=== PATIENT | female | born 1945 | race Caucasian/White ===

== ENCOUNTER 2017-12-31 21:16 | Emergency (ER) | payer OTHER ==
[~2017-12-31] VITALS: Ht 175.3 cm; Wt 124.0 kg
[2017-12-31 21:20] VITALS: TEMP 36.6; Ht 175.3 cm; Wt 124.0 kg
--- NOTE | 2017-12-31 22:10 | DIAGNOSTIC IMAGING REPORT ---
CHEST ONE VIEW PORTABLE CLINICAL HISTORY: 72 years-old Female presenting with CHEST PAIN. TECHNIQUE: Portable upright AP view of the chest was obtained. COMPARISON: None. FINDINGS: Atherosclerosis of aortic arch. Cardiac silhouette enlarged. Minimal basilar opacities. No pleural effusion or pneumothorax. Degenerative changes of the thoracic spine. Upper abdomen normal. IMPRESSION: 1. Minimal bibasilar atelectasis suspected. No convincing evidence of acute cardiopulmonary disease. Electronically signed by: Pantera Mcbride M.D. 12/31/2017 10:09 PM Dictated Date/Time: 12/31/2017 10:08 PM
[2017-12-31 22:16] LABS: INR 1.1 (0.9-1.1); PTT PATIENT 26.6 SECONDS (21.0-31.0)
[2017-12-31 22:19] LABS: BASO % 0.5 %; BASO ABS # 0.05 K/uL (0-0.2); EOS % 4.2 %; HEMATOCRIT 40.2 % (37-47); HEMOGLOBIN 13.8 g/dL (12.0-16.0); IG# 0.03 K/uL (0.00-0.02); LYMPH % 39.6 %; MEAN CELL VOLUME 90.5 fL (80-100); MEAN CORPUSCULAR HEMOGLOBIN 31.1 pg (25-34); MEAN CORPUSCULAR HGB CONC 34.3 g/dl (32-36); MEAN PLATELET VOLUME 9.1 fL (7.4-10.4); MONO % 7.2 %; MONO ABS # 0.69 K/uL (0.11-0.59); NEUT % 48.2 %; NEUT ABS # 4.63 K/uL (1.4-6.5); PLATELET COUNT 376 K/uL (130-400); RED CELL DISTRIBUTION WIDTH CV 14.3 % (11.5-14.5); RED CELL DISTRIBUTION WIDTH SD 47.6 fL (36.4-46.3)
[2017-12-31] MEDS ORDERED: CETI10TA84 PO (22:30)
[2017-12-31] MEDS ORDERED: POTA10CA28 PO (22:30)
[2017-12-31] MEDS ORDERED: TRIATAB3 PO (22:30)
[2017-12-31] MEDS ORDERED: MAGNESIUM (22:30)
[2017-12-31] MEDS ORDERED: KETO2SHA5 TOP (22:30)
[2017-12-31] MEDS ORDERED: ERGO500037 PO (22:30)
[2017-12-31] MEDS ORDERED: NIAC50TA9 PO (22:30)
[2017-12-31] MEDS ORDERED: ATEN-173 PO (22:30)
[2017-12-31] MEDS ORDERED: MECL1TAB42 PO (22:30)
[2017-12-31] MEDS ORDERED: WARF6TAB PO (22:30)
[2017-12-31] MEDS ORDERED: LEVO150T9 PO (22:30)
[2017-12-31 22:38] LABS: ALBUMIN 3.3 gm/dl (3.4-5.0); ALT/SGPT 41 U/L (12-78); BLOOD UREA NITROGEN 15 mg/dl (7-18); CARBON DIOXIDE 26 mmol/L (21-32); CREATININE 0.91 mg/dl (0.60-1.20); GLUCOSE 112 mg/dl (70-99); LIPASE 280 U/L (73-393); POTASSIUM 3.7 mmol/L (3.5-5.1); SODIUM 135 mmol/L (136-145)
[2017-12-31 22:53] LABS: ALKALINE PHOSPHATASE 98 U/L (45-117); AST/SGOT 34 U/L (15-37); TOTAL PROTEIN 7.4 gm/dl (6.4-8.2)
[2017-12-31 23:01] VITALS: O2SAT 92
--- NOTE | 2018-01-01 00:11 | EMERGENCY ROOM VISIT NOTE ---
ED Visit Note First contact with patient: 21:25 The patient was seen and examined with Basia Greenberg [facility]. I agree with the history, physical and findings. Please see the note for disposition and details.
[2018-01-01] MEDS ORDERED: WARFARIN SOD 6 MG TAB PO STA (00:40)
[2018-01-01 01:00] VITALS: BP 135/85; PULSE 67; O2SAT 94
--- NOTE | 2018-01-01 01:10 | EMERGENCY ROOM VISIT NOTE ---
History First contact with patient: 21:25 Chief Complaint: SHORTNESS OF BREATH Stated Complaint: TROUBLE BREATHING Nursing Triage Summary: pt states she was taken off of her thyroid medication for 6 weeks and has been back on it for 3 days. c/o sob, "feeling swollen all over," feeling cold. pt on coumadin History of Present Illness The patient is a 72 year old female who presents to the Emergency Room with complaints of worsening fatigue, dry skin, body aches, chronic dyspnea for the past 6 months that is steadily getting worse. Patient states 3 months ago her family doctor told her to quit taking her Synthroid. She then was told to restart it 3 days ago. Patient is on Coumadin for history of PE. She states she has not missed a dose. She states her INR levels go up and down constantly. Patient states she is fed up with her current family care doctor and will be seeing Dr. Shine as her new family care doctor. No prior history of heart disease or CHF. Patient does not drink or smoke. She used to smoke in the past. No recent travel. Patient has sleep apnea. Patient denies chest pain, exertional dyspnea, leg swelling, confusion, fever, productive cough , vomiting, diarrhea, cold symptoms, Urinary symptoms. Review of Systems An 10 system review of systems was completed with positives and pertinent negatives listed in the HPI. Past Medical/Surgical History Hypothyroidism, PE, cholecystectomy, hypertension, hyperlipidemia, diabetes, KARISHMA , vitamin D deficiency, hysterectomy, tonsillectomy Social History Smoking Status: Former Smoker Alcohol Use: none Drug Use: none Housing Status: lives with family Current/Historical Medications Scheduled Atenolol (Tenormin), 25 MG PO DAILY Cetirizine (Zyrtec), 10 MG PO DAILY Ergocalciferol (Vitamin D 88554 Unit), 50,000 UNIT PO WK Levothyroxine Sodium (Levothyroxine Sodium), 1 TAB PO DAILY Niacin (Niacin), 1 TAB PO DAILY Potassium Chloride (Micro-K Ext Rel), 1 TAB PO BID Triamterene/Hctz (Triamterene/Hctz 37.5-25MG), 1 TAB PO DAILY Warfarin Sodium (Coumadin), 1 TAB PO DAILY [Magnesium], 1 TAB DAILY Scheduled PRN Ketoconazole (Topical) (Nizoral), 1 APPLN TOP 2XWK PRN for Meclizine Hcl (Meclizine Hcl), 1 TAB PO DAILY PRN for Dizziness or Vertigo Physical Exam Vital Signs Date Time Temp Pulse Resp B/P (MAP) Pulse Ox O2 Delivery O2 Flow Rate FiO2 01/01/18 00:01 64 18 144/81 91 Room Air 12/31/17 23:01 92 Room Air 12/31/17 23:01 92 Room Air 12/31/17 23:01 66 18 128/76 92 Room Air 12/31/17 22:17 69 12/31/17 21:25 96 Room Air 12/31/17 21:20 36.6 78 20 133/74 96 Room Air Physical Exam VITALS: Vitals are noted on the nurse's note and reviewed by myself. Vital signs stable. GENERAL: Pleasant female answering questions appropriately, in no acute distress , nondiaphoretic, well-developed well-nourished. SKIN: The skin was without rashes, erythema, edema, or bruising. There is no tenting of the skin. Capillary reflex less than 2 seconds. HEAD: Normocephalic atraumatic. EARS: External auditory canals clear, tympanic membranes pearly hernandez without erythema or effusion bilaterally. EYES: Pupils equal round and reactive to light and accommodation. Conjunctivae without injection, sclerae without icterus. Extraocular movements intact. NOSE: Patent, turbinates without inflammation or discharge. No sinus tenderness. MOUTH: Mucous membranes moist. Pharynx without erythema or exudate. Uvula midline. Airway patent. Tongue does not deviate. NECK: Supple without nuchal rigidity. No lymphadenopathy. No thyromegaly. Cervical spine is nontender. No JVD. HEART: Regular rate and rhythm LUNGS: Clear to auscultation bilaterally without wheezes, rales or rhonchi. No retractions or accessory muscle use. ABDOMEN: Positive bowel sounds x 4. Normal tympanic percussion. Soft, protuberant, obese, nontender, without masses or organomegaly. Huynh sign negative. No guarding or rebound tenderness. No CVA tenderness MUSCULOSKELETAL: No muscle atrophy, erythema, or edema noted. NEURO: Patient was alert and oriented to person place and time. Normal sensation to light and sharp touch. No focal neurological deficits. Medical Decision & Procedures Laboratory Results 12/31/17 21:55 Red Blood Count 4.44, Mean Corpuscular Volume 90.5, Mean Corpuscular Hemoglobin 31.1, Mean Corpuscular Hemoglobin Concent 34.3, Mean Platelet Volume 9.1, Neutrophils (%) (Auto) 48.2, Lymphocytes (%) (Auto) 39.6, Monocytes (%) (Auto) 7.2, Eosinophils (%) (Auto) 4.2, Basophils (%) (Auto) 0.5, Neutrophils # (Auto) 4.63, Lymphocytes # (Auto) 3.80, Monocytes # (Auto) 0.69, Eosinophils # (Auto) 0.40, Basophils # (Auto) 0.05 12/31/17 21:55 Test 12/31/17 21:28 12/31/17 21:55 12/31/17 23:48 01/01/18 00:02 D-Dimer 210 ug/L FEU (0-500) White Blood Count 9.60 K/uL (4.8-10.8) Red Blood Count 4.44 M/uL (4.2-5.4) Hemoglobin 13.8 g/dL (12.0-16.0) Hematocrit 40.2 % (37-47) Mean Corpuscular Volume 90.5 fL (80-100) Mean Corpuscular Hemoglobin 31.1 pg (25-34) Mean Corpuscular Hemoglobin Concent 34.3 g/dl (32-36) Platelet Count 376 K/uL (130-400) Mean Platelet Volume 9.1 fL (7.4-10.4) Neutrophils (%) (Auto) 48.2 % Lymphocytes (%) (Auto) 39.6 % Monocytes (%) (Auto) 7.2 % Eosinophils (%) (Auto) 4.2 % Basophils (%) (Auto) 0.5 % Neutrophils # (Auto) 4.63 K/uL (1.4-6.5) Lymphocytes # (Auto) 3.80 K/uL (1.2-3.4) Monocytes # (Auto) 0.69 K/uL (0.11-0.59) Eosinophils # (Auto) 0.40 K/uL (0-0.5) Basophils # (Auto) 0.05 K/uL (0-0.2) RDW Standard Deviation 47.6 fL (36.4-46.3) RDW Coefficient of Variation 14.3 % (11.5-14.5) Immature Granulocyte % (Auto) 0.3 % Immature Granulocyte # (Auto) 0.03 K/uL (0.00-0.02) Prothrombin Time 11.3 SECONDS (9.0-12.0) Prothromb Time International Ratio 1.1 (0.9-1.1) Activated Partial Thromboplast Time 26.6 SECONDS (21.0-31.0) Partial Thromboplastin Ratio 1.0 Anion Gap 8.0 mmol/L (3-11) Est Creatinine Clear Calc Drug Dose 80.0 ml/min Estimated GFR () 73.6 Estimated GFR (Non- 63.5 BUN/Creatinine Ratio 16.1 (10-20) Calcium Level 9.0 mg/dl (8.5-10.1) Magnesium Level 2.2 mg/dl (1.8-2.4) Total Bilirubin 0.3 mg/dl (0.2-1) Direct Bilirubin mg/dl (0-0.2) Aspartate Amino Transf (AST/SGOT) 34 U/L (15-37) Alanine Aminotransferase (ALT/SGPT) 41 U/L (12-78) Alkaline Phosphatase 98 U/L (45-117) Pro-B-Type Natriuretic Peptide 23 pg/ml (0-900) Total Protein 7.4 gm/dl (6.4-8.2) Albumin 3.3 gm/dl (3.4-5.0) Lipase 280 U/L (73-393) Thyroid Stimulating Hormone (TSH) 164.000 uIu/ml (0.300-4.500) Free Thyroxine 0.39 ng/dl (0.80-1.60) Chemistry Specimen Hemolysis Urine Color YELLOW Urine Appearance CLEAR (CLEAR) Urine pH 6.5 (4.5-7.5) Urine Specific Alexis 1.017 (1.000-1.030) Urine Protein NEG (NEG) Urine Glucose (UA) NEG (NEG) Urine Ketones NEG (NEG) Urine Occult Blood NEG (NEG) Urine Nitrite NEG (NEG) Urine Bilirubin NEG (NEG) Urine Urobilinogen NEG (NEG) Urine Leukocyte Esterase MODERATE (NEG) Urine WBC (Auto) >30 /hpf (0-5) Urine RBC (Auto) 0-4 /hpf (0-4) Urine Hyaline Casts (Auto) 1-5 /lpf (0-5) Urine Epithelial Cells (Auto) 20-30 /lpf (0-5) Urine Bacteria (Auto) NEG (NEG) Troponin I < 0.015 ng/ml (0-0.045) Medications Administered Medications (Trade) Dose Ordered Sig/Estella Route Start Time Stop Time Status Last Admin Dose Admin Warfarin Sodium (Coumadin Tab) 6 mg NOW STAT PO 01/01/18 00:40 01/01/18 00:41 DC 01/01/18 00:57 6 MG ED Course Prior records/ancillary studies reviewed and summarized above. Nursing notes reviewed. Additional history obtained from family. The patient's history was concerning for fatigue, dyspnea for the past 6 months Differential diagnosis: Etiologies such as thyroid, metabolic, infection, hypo/hyperglycemia, electrolyte abnormalities, cardiac sources, intracerebral event, toxicologic, neurologic, as well as others were entertained. Physical examination: As above. ER treatment provided: IV Lock Coumadin On reassessment the patient felt better. Diagnostics interpretation by me: ECG: Normal sinus, normal intervals, left axis deviation, no acute ST-T wave changes, rate 72. No old EKG. Impression normal sinus rhythm with left axis deviation interpreted by myself The labs revealed elevated TSH. Patient recently restarted her thyroid medicine 3 days ago. Negative troponin 2 greater than 2 hours apart, negative d-dimer, subtherapeutic INR Imaging studies: [~ rep ct add3]] CHEST ONE VIEW PORTABLE CLINICAL HISTORY: 72 years-old Female presenting with CHEST PAIN. TECHNIQUE: Portable upright AP view of the chest was obtained. COMPARISON: None. FINDINGS: Atherosclerosis of aortic arch. Cardiac silhouette enlarged. Minimal basilar opacities. No pleural effusion or pneumothorax. Degenerative changes of the thoracic spine. Upper abdomen normal. IMPRESSION: 1. Minimal bibasilar atelectasis suspected. No convincing evidence of acute cardiopulmonary disease. Electronically signed by: Pantera Mcbride M.D. 12/31/2017 10:09 PM Dictated Date/Time: 12/31/2017 10:08 PM Exam and history seem consistent with severe hypothyroidism and subtherapeutic INR. D-dimer was negative. Patient started her Synthroid to days ago. She is advised to recheck her thyroid levels in 6 weeks. She was advised to see her family care doctor this week for recheck of her INR and for reevaluation. Patient had a normal EKG and 2 negative troponins. No urine infection. Urine seemed consistent with contamination. Patient was neurovascularly and neurologically intact. She is well-appearing. She is advised to return to the ER immediately for chest pain, difficulty breathing, confusion, worsening signs or symptoms or as needed. Patient's symptoms have been ongoing for several months now. By the evaluation outlined above emergent etiologies such as infection, electrolyte abnormalities, cardiac sources, intracerebral event, toxologic, neurologic, abnormalities blood glucose, metabolic, as well as others were deemed relatively unlikely. The pt informed about the findings as listed above. All questions were answered and pleased with the treatment. Return instructions were outlined and the patient was discharged in stable condition. Referral: The patient was referred back to primary care physician for follow-up in 2 to 3 days for a recheck of the current condition. Case reviewed with my attending The chart was completed utilizing [employer] voice recognition software. Grammatical errors, random word insertions, pronoun errors, and incomplete sentences are an occassional consequence of this system due to software limitations, ambient noise, and hardware issues. Any formal questions or concerns about the content, text, or information contained within the body of this dictation should be directly addressed to the physician early childhood assistant for clarification. Medical Decision As above Medication Reconcilliation Current Medication List: was personally reviewed by me Blood Pressure Screening Patient's blood pressure: Normal blood pressure Impression Primary Impression: Subtherapeutic international normalized ratio (INR) Additional Impression: Hypothyroidism Departure Information Dispostion Home / Self-Care Condition GOOD Forms HOME CARE DOCUMENTATION FORM, IMPORTANT VISIT INFORMATION Patient Instructions My [facility], ED Hypothyroidism Additional Instructions You need to have your thyroid levels rechecked in 6 weeks. You should take her medicine daily. Your Coumadin levels are low. You should take twice your Coumadin dose for 2 more days and then resume your normal schedule. Recheck your Coumadin level in 1 week. Acetaminophen(Tylenol) may be used for fever or pain. Use 1000mg every six hours as needed. Avoid using more than 3000mg in a 24 hour period. Rest and drink plenty of fluids as tolerated. Continue current medications. Return to the ER immediately for worsening or persistent fatigue, abdominal pain , vomiting, fevers, chest pains, difficulty breathing, worsening of your condition, or as needed. Follow up with your primary physician in 2-3 days for a recheck of your current condition. Problem Qualifiers
== END 2018-01-01 01:00 | disposition home or self-care (01) ==
LOC: C.EDB 21:18 → C.EDC 01-01 01:00
DX: R79.1 Abnormal coagulation profile (principal); E03.9 Hypothyroidism, unspecified; I10 Essential (primary) hypertension; E78.5 Hyperlipidemia, unspecified; Z79.01 Long term (current) use of anticoagulants; E55.9 Vitamin D deficiency, unspecified; E11.9 Type 2 diabetes mellitus without complications; G47.33 Obstructive sleep apnea (adult) (pediatric); Z90.49 Acquired absence of other specified parts of digestive tract; Z90.710 Acquired absence of both cervix and uterus; Z87.891 Personal history of nicotine dependence; Z86.711 Personal history of pulmonary embolism

== ENCOUNTER → 2018-01-10 | Outpatient (CLI) | payer OTHER ==
[~2018-01-10] MED LIST: ATEN-173 PO; CETI10TA84 PO; ERGO500037 PO; KETO2SHA5 TOP; LEVO150T9 PO; MAGNESIUM; MECL1TAB42 PO; NIAC50TA9 PO; POTA10CA28 PO; TRIATAB3 PO; WARF6TAB PO
[2018-01-10 17:40] LABS: INR 1.8 (0.9-1.1)
== END | disposition home or self-care (01) ==
LOC: C.LABPBG 11:26
PROVIDERS: ATTEND Family Medicine
DX: Z86.711 Personal history of pulmonary embolism (principal)

== ENCOUNTER → 2018-01-31 | Outpatient (CLI) | payer OTHER ==
[~2018-01-31] MED LIST changes: +CHOL1TAB42 PO; +CIPR-255 PO; +DIPH-437 PO; +SACC250C3 PO
[2018-01-31 17:10] LABS: INR 2.1 (0.9-1.1)
== END | disposition home or self-care (01) ==
LOC: C.LABPBG 11:17
PROVIDERS: ATTEND Family Medicine
DX: Z86.711 Personal history of pulmonary embolism (principal)

== ENCOUNTER 2018-02-05 16:06 | Emergency (ER) | payer OTHER ==
[~2018-02-05 16:06] MED LIST changes: -CHOL1TAB42 PO; -CIPR-255 PO; -DIPH-437 PO; -SACC250C3 PO
[2018-02-05 16:08] VITALS: TEMP 36.4; Ht 175.3 cm
[2018-02-05] MEDS ORDERED: METOCLOPRAMIDE HCL INJ 5 MG/ML 2 ML VIAL IV. STA (16:45)
[2018-02-05] MEDS ORDERED: DiphenhydrAMINE HCL 50 MG/ML VIAL IV STA (16:45)
[2018-02-05] MEDS ORDERED: SODIUM CHLORIDE 0.9% 1000ML 1,000 ML IV STA (16:45)
--- NOTE | 2018-02-05 17:06 | DIAGNOSTIC IMAGING REPORT ---
CHEST ONE VIEW PORTABLE CLINICAL HISTORY: Pain radiating to the abdomen. Difficulty breathing. Dizziness. COMPARISON STUDY: 12/31/2017 FINDINGS: The heart is enlarged. There is aortic tortuosity/ectasia. There is diffuse elevation of the interstitium, likely secondary to pulmonary vascular congestion/fluid overload. An interstitial inflammatory process could appear similar. There are no significant pleural effusions[ . No free intraperitoneal air is visualized. IMPRESSION: Mild cardiomegaly, and elevation of the interstitium, likely secondary to mild pulmonary vascular congestion/fluid overload. No evidence of free intraperitoneal air. Electronically signed by: Faustino Villa M.D. 02/05/2018 5:05 PM Dictated Date/Time: 02/05/2018 5:04 PM
[2018-02-05] MEDS ORDERED: CHOL1TAB42 PO (17:19)
[2018-02-05] MEDS ORDERED: DIPH-437 PO (17:21)
[2018-02-05 17:26] LABS: BASO % 0.2 %; BASO ABS # 0.02 K/uL (0-0.2); EOS ABS # 0.08 K/uL (0-0.5); HEMATOCRIT 38.5 % (37-47); HEMOGLOBIN 13.4 g/dL (12.0-16.0); IG# 0.03 K/uL (0.00-0.02); LYMPH % 28.7 %; LYMPH ABS # 2.41 K/uL (1.2-3.4); MEAN CELL VOLUME 90.6 fL (80-100); MEAN CORPUSCULAR HEMOGLOBIN 31.5 pg (25-34); MEAN CORPUSCULAR HGB CONC 34.8 g/dl (32-36); MEAN PLATELET VOLUME 9.1 fL (7.4-10.4); MONO % 8.9 %; MONO ABS # 0.75 K/uL (0.11-0.59); NEUT % 60.8 %; NEUT ABS # 5.11 K/uL (1.4-6.5); PLATELET COUNT 376 K/uL (130-400); RED CELL DISTRIBUTION WIDTH CV 14.3 % (11.5-14.5); RED CELL DISTRIBUTION WIDTH SD 48.1 fL (36.4-46.3)
[2018-02-05 17:28] LABS: INR 1.6 (0.9-1.1)
--- NOTE | 2018-02-05 17:33 | EMERGENCY ROOM VISIT NOTE ---
History Report prepared by Lisa: Hannah Johnson Under the Supervision of: Dr. Mio Douglas M.D. First contact with patient: 16:29 Chief Complaint: DIZZY Stated Complaint: DIZZY, SOB, CAN'T GET UP Nursing Triage Summary: Pt c/o trouble breathing, I can't stand up (because) I'm dizzy. I feel like I'm going to throw up. Symptoms for a couple days. Right ear feels warm and feels like it's draining and "I can hear stuff in there" Hx Vertigo History of Present Illness The patient is a 72 year old female who presents to the Emergency Room with complaints of persistent dizzy spells that began several months ago. She reports that several months ago she began experiencing some ear discomfort, noting that her doctor told her there was nothing wrong. The patient then began experiencing numbness in her fingers, eye discomfort/blurriness, excessive sweating, nausea, some nasal congestion, sore throat, tongue swelling, feeling like she is going to faint, and a "funny feeling" throughout her body. She denies any abdominal pain, vomiting, or diarrhea. Denies CP/SOB. The patient reports that her symptoms feel similar to the last time she had vertigo, which was July of 2017. Source of History: patient Onset: several months Position: other (neuro) Quality: other (dizzy spells) Timing: worsening Associated Symptoms: + nausea, No vomiting, No abdominal pain, No diarrhea Note: Associated symptoms include: numbness in her fingers, eye discomfort/blurriness , feeling like she is going to faint, and a "funny feeling" throughout her body. Review of Systems See HPI for pertinent positives and negatives. A total of ten systems were reviewed and were otherwise negative. Past Medical & Surgical Medical Problems: (1) Diabetes (2) Gallbladder problem (3) Hypertension (4) Pneumonia (5) Pulmonary embolism (6) Ulcer (7) Urinary problem Family History Cancer Diabetes mellitus Gallbladder disease Heart disease Hypertension Kidney disease Kidney stones Lung disease Seizures Social History Smoking Status: Former Smoker Alcohol Use: none Drug Use: none Housing Status: lives with family Current/Historical Medications Scheduled Atenolol (Tenormin), 25 MG PO DAILY Cetirizine (Zyrtec), 10 MG PO DAILY Cholecalciferol (Vitamin D), 1 TAB PO QAM Ciprofloxacin Hcl (Cipro), 500 MG PO BID Levothyroxine Sodium (Levothyroxine Sodium), 1 TAB PO DAILY Niacin (Niacin), 1 TAB PO DAILY Potassium Chloride (Micro-K Ext Rel), 1 TAB PO BID Saccharomyces Boulardii (Florastor), 1 CAP PO BID Triamterene/Hctz (Triamterene/Hctz 37.5-25MG), 1 TAB PO DAILY Warfarin Sodium (Coumadin), 1 TAB PO DAILY [Magnesium], 1 TAB DAILY Scheduled PRN Diphenhydramine-Acetaminophen (Tylenol Pm), 1 TAB PO HS PRN for Pain Meclizine Hcl (Meclizine Hcl), 1 TAB PO DAILY PRN for Dizziness or Vertigo Allergies Coded Allergies: No Known Allergies (Unverified , 02/05/18) Physical Exam Vital Signs Date Time Temp Pulse Resp B/P (MAP) Pulse Ox O2 Delivery O2 Flow Rate FiO2 02/05/18 21:08 68 18 138/77 93 02/05/18 19:33 66 20 133/77 97 Room Air 02/05/18 18:20 78 02/05/18 18:18 78 16 151/85 93 Room Air 02/05/18 16:08 36.4 70 18 135/77 94 Room Air Physical Exam GENERAL: Awake, alert, fatigued-appearing, but in no acute distress HENT:No nystagmus. Normocephalic, atraumatic. Oropharynx with dry mucous membranes and otherwise unremarkable. EYES: Normal conjunctiva. Sclera non-icteric. NECK: Supple. No nuchal rigidity. FROM. No JVD. RESPIRATORY: Clear to auscultation. CARDIAC: Regular rate, normal rhythm. Extremities warm and well perfused. Pulses equal. ABDOMEN: Soft, non-distended. No tenderness to palpation. No rebound or guarding. No masses. RECTAL: Deferred. MUSCULOSKELETAL: Chest examination reveals no tenderness. The back is symmetrical on inspection without obvious abnormality. There is no CVA tenderness to palpation. No joint edema. LOWER EXTREMITIES: Calves are equal size bilaterally and non-tender. No edema. No discoloration. NEURO: Normal sensorium. No sensory or motor deficits noted. normal cerebellar function with [id number], alternating palms. 4/5 strength plantar and Dorsi- flexion bilaterally. Otherwise 5/5 strength throughout. Normal reflexes. SKIN: No rash or jaundice noted. Medical Decision & Procedures ER Provider Diagnostic Interpretation: Radiology results as stated below per my review and radiologist interpretation: CHEST ONE VIEW PORTABLE CLINICAL HISTORY: Pain radiating to the abdomen. Difficulty breathing. Dizziness. COMPARISON STUDY: 12/31/2017 FINDINGS: The heart is enlarged. There is aortic tortuosity/ectasia. There is diffuse elevation of the interstitium, likely secondary to pulmonary vascular congestion/fluid overload. An interstitial inflammatory process could appear similar. There are no significant pleural effusions[ . No free intraperitoneal air is visualized. IMPRESSION: Mild cardiomegaly, and elevation of the interstitium, likely secondary to mild pulmonary vascular congestion/fluid overload. No evidence of free intraperitoneal air. Electronically signed by: Faustino Villa M.D. 02/05/2018 5:05 PM Dictated Date/Time: 02/05/2018 5:[address] HEAD WITHOUT CONTRAST (CT) CLINICAL HISTORY: Stroke COMPARISON STUDY: No previous studies for comparison. TECHNIQUE: Axial CT of the brain is performed from the vertex to the skull base. IV contrast was not administered for this examination. A dose lowering technique was utilized adhering to the principles of ALARA. CT DOSE: 1457.92 mGy.cm FINDINGS: No intra or extra-axial mass lesions are visualized. There is no CT evidence of acute cortical infarction. There is no evidence of midline shift. There is no acute hemorrhage. No calvarial fractures are visualized. There are minimal white matter hypodensities likely on a small vessel basis. There is a small hypodensity located medial to the insular cortex. This likely represents either an old lacunar infarct or prominent CSF space There is no evidence of pathologic ventricular dilatation. There is no evidence of acute sinusitis IMPRESSION: No acute intracranial findings Electronically signed by: Faustino Villa M.D. 02/05/2018 7:05 PM Dictated Date/Time: 02/05/2018 7:[address] NECK ANGIO WITH CONTRAST CLINICAL HISTORY: Stroke COMPARISON STUDY: No previous studies for comparison. TECHNIQUE: CT angiography was performed from the aortic arch to the skull base. MIP imaging was performed. The patient was scanned in a dynamic helical fashion during intravenous administration of 116 cc of Optiray 320. A dose lowering technique was utilized adhering to the principles of ALARA. CT DOSE: Technique: CT angiogram of the carotid and vertebral arteries was obtained using intravenous contrast and 3-D reconstruction. NASCET criteria was utilized. Findings: The right carotid revealed no evidence of aneurysm and no evidence of dissection. There is no evidence of hemodynamic significant stenosis. The left carotid revealed no evidence of hemodynamic significant stenosis. There is no evidence of aneurysm. There is no evidence of dissection. There is no evidence of hemodynamically significant vertebral stenosis. There is no evidence of vertebral dissection. IMPRESSION: No evidence of hemodynamically significant carotid or vertebral artery stenosis. No evidence of dissection. Electronically signed by: Faustino Villa M.D. 02/05/2018 7:11 PM Dictated Date/Time: 02/05/2018 7:[address] HEAD ANGIO WITH CONTRAST CLINICAL HISTORY: Stroke TECHNIQUE: CT angiography of the head was performed in a dynamic helical fashion during intravenous administration of 116 cc of Optiray 320. A dose lowering technique was utilized adhering to the principles of ALARA. MIP imaging was performed CT DOSE: COMPARISON STUDY: Noncontrast head CT dated 02/05/2018 FINDINGS: There are no lesion suspicious for aneurysm. There are no major intracranial branch occlusions. The dural venous sinuses appear patent. There is a hypoplastic right A1 segment IMPRESSION: 1. Hypoplastic right A1 segment 2. No evidence of aneurysm 3. No evidence of dural venous sinus thrombosis Electronically signed by: Faustino Villa M.D. 02/05/2018 7:08 PM Dictated Date/Time: 02/05/2018 7:05 PM Laboratory Results 02/05/18 17:00 Red Blood Count 4.25, Mean Corpuscular Volume 90.6, Mean Corpuscular Hemoglobin 31.5, Mean Corpuscular Hemoglobin Concent 34.8, Mean Platelet Volume 9.1, Neutrophils (%) (Auto) 60.8, Lymphocytes (%) (Auto) 28.7, Monocytes (%) (Auto) 8.9, Eosinophils (%) (Auto) 1.0, Basophils (%) (Auto) 0.2, Neutrophils # (Auto) 5.11, Lymphocytes # (Auto) 2.41, Monocytes # (Auto) 0.75, Eosinophils # (Auto) 0.08, Basophils # (Auto) 0.02 02/05/18 17:00 Test 02/05/18 17:00 02/05/18 19:40 White Blood Count 8.40 K/uL (4.8-10.8) Red Blood Count 4.25 M/uL (4.2-5.4) Hemoglobin 13.4 g/dL (12.0-16.0) Hematocrit 38.5 % (37-47) Mean Corpuscular Volume 90.6 fL (80-100) Mean Corpuscular Hemoglobin 31.5 pg (25-34) Mean Corpuscular Hemoglobin Concent 34.8 g/dl (32-36) Platelet Count 376 K/uL (130-400) Mean Platelet Volume 9.1 fL (7.4-10.4) Neutrophils (%) (Auto) 60.8 % Lymphocytes (%) (Auto) 28.7 % Monocytes (%) (Auto) 8.9 % Eosinophils (%) (Auto) 1.0 % Basophils (%) (Auto) 0.2 % Neutrophils # (Auto) 5.11 K/uL (1.4-6.5) Lymphocytes # (Auto) 2.41 K/uL (1.2-3.4) Monocytes # (Auto) 0.75 K/uL (0.11-0.59) Eosinophils # (Auto) 0.08 K/uL (0-0.5) Basophils # (Auto) 0.02 K/uL (0-0.2) RDW Standard Deviation 48.1 fL (36.4-46.3) RDW Coefficient of Variation 14.3 % (11.5-14.5) Immature Granulocyte % (Auto) 0.4 % Immature Granulocyte # (Auto) 0.03 K/uL (0.00-0.02) Prothrombin Time 16.7 SECONDS (9.0-12.0) Prothromb Time International Ratio 1.6 (0.9-1.1) Anion Gap 7.0 mmol/L (3-11) Estimated GFR () 88.6 Estimated GFR (Non- 76.5 BUN/Creatinine Ratio 22.7 (10-20) Calcium Level 8.7 mg/dl (8.5-10.1) Magnesium Level 2.3 mg/dl (1.8-2.4) Total Bilirubin 0.5 mg/dl (0.2-1) Direct Bilirubin < 0.1 mg/dl (0-0.2) Aspartate Amino Transf (AST/SGOT) 27 U/L (15-37) Alanine Aminotransferase (ALT/SGPT) 39 U/L (12-78) Alkaline Phosphatase 95 U/L (45-117) Troponin I < 0.015 ng/ml (0-0.045) Pro-B-Type Natriuretic Peptide 19 pg/ml (0-900) Total Protein 7.5 gm/dl (6.4-8.2) Albumin 3.5 gm/dl (3.4-5.0) Lipase 112 U/L (73-393) Thyroid Stimulating Hormone (TSH) 1.030 uIu/ml (0.300-4.500) Free Thyroxine 1.33 ng/dl (0.80-1.60) Free Triiodothyronine 2.67 pg/ml (2.30-4.20) Urine Color YELLOW Urine Appearance CLEAR (CLEAR) Urine pH 6.0 (4.5-7.5) Urine Specific [place] > 1.045 (1.000-1.030) Urine Protein NEG (NEG) Urine Glucose (UA) NEG (NEG) Urine Ketones NEG (NEG) Urine Occult Blood NEG (NEG) Urine Nitrite NEG (NEG) Urine Bilirubin NEG (NEG) Urine Urobilinogen NEG (NEG) Urine Leukocyte Esterase MODERATE (NEG) Urine WBC (Auto) >30 /hpf (0-5) Urine RBC (Auto) 0-4 /hpf (0-4) Urine Hyaline Casts (Auto) 10-30 /lpf (0-5) Urine Epithelial Cells (Auto) 10-20 /lpf (0-5) Urine Bacteria (Auto) NEG (NEG) Laboratory results reviewed by me Medications Administered Medications (Trade) Dose Ordered Sig/Estella Route Start Time Stop Time Status Last Admin Dose Admin Sodium Chloride 1,000 ml @ 999 mls/hr Q1H1M STAT IV 02/05/18 16:45 02/05/18 17:45 DC 02/05/18 18:11 999 MLS/HR Metoclopramide HCl (Reglan Inj) 10 mg NOW STAT IV. 02/05/18 16:45 02/05/18 16:50 DC 02/05/18 18:08 10 MG Diphenhydramine HCl (Benadryl Inj) 25 mg NOW STAT IV 02/05/18 16:45 02/05/18 16:50 DC 02/05/18 18:08 25 MG Ciprofloxacin (Cipro Tab) 500 mg NOW STAT PO 02/05/18 20:41 02/05/18 20:43 DC 02/05/18 21:01 500 MG Warfarin Sodium (Coumadin Tab) 6 mg NOW STAT PO 02/05/18 20:41 02/05/18 20:43 DC 02/05/18 21:01 6 MG ECG Per My Interpretation Indication: weakness, syncope Rate (beats per minute): 73 Rhythm: normal sinus Findings: no acute ischemic change, left axis deviation ED Course 163: The patient was evaluated in room C10. A complete history and physical exam was performed. 1835: I reevaluated the patient and updated her on test findings. She verbalized complete understanding. 2009: I reevaluated the patient. Discussed results and discharge instructions: she verbalized understanding and agreement. The patient is ready for discharge. Medical Decision I reviewed the patient's past medical history, medications, and the nursing notes as described above. Differential diagnosis: Etiologies such as metabolic, infection, hypo/hyperglycemia, electrolyte abnormalities, cardiac sources, intracerebral event, toxicologic, neurologic, as well as others were entertained. The patient is a 72-year-old woman with a past medical history of Charcot-Paulette- Tooth and hypothyroidism who presents emergency department with persistent complaints of numbness and tingling in her extremities, generalized weakness, right ear fullness, headache over the past several months that have worsened now is experiencing vertigo per hpi. On arrival the patient is anxious appearing but no acute distress, afebrile stable vital signs. On exam the patient has mild weakness with plantar flexion bilaterally and dorsiflexion of her feet which she says is her "CMT". Otherwise the patient is neurologically intact including.exam cerebellar. UA consistent with UTI. Labs otherwise unremarkable including WBC within normal limits. Chest x-ray with question of fluid overload however (contrary to triage note) the patient denies any SOB. Given the patient's multiple neurologic complaints including vertigo CTA of the head and neck was done and negative for stroke or large vessel occlusion. She did feel improved after IV fluid hydration, Reglan, Benadryl. Plan for oral Cipro and PCP follow-up. Findings and plan for follow-up reviewed with patient. Patient agreeable and d/c'd per discharge instructions. Medication Reconcilliation Current Medication List: was personally reviewed by me Blood Pressure Screening Patient's blood pressure: Normal blood pressure Blood pressure disposition: Did not require urgent referral Impression Primary Impression: UTI (urinary tract infection) Scribe Attestation The scribe's documentation has been prepared under my direction and personally reviewed by me in its entirety. I confirm that the note above accurately reflects all work, treatment, procedures, and medical decision making performed by me. Departure Information Dispostion Home / Self-Care Prescriptions Saccharomyces Boulardii (Florastor) 250 Mg Cap 1 CAP PO BID for 10 Days, #20 CAP Prov: Mio Douglas M.D. 02/05/18 Ciprofloxacin Hcl (CIPRO) 500 Mg Tab 500 MG PO BID for 5 Days, #10 TAB Prov: Mio Douglas M.D. 02/05/18 Referrals Cheyenne Calvo DO (PCP) Forms HOME CARE DOCUMENTATION FORM, IMPORTANT VISIT INFORMATION Patient Instructions ED UTI Cystitis Female, ED Vertigo Unspecified, My [facility] Additional Instructions Please follow up with your primary care physician in the next 1-3 days for re- evaluation. You should also contact your coagulation clinic for further instructions given your INR was 1.6 today. Your symptoms are likely related to a urinary tract infection and may have also provoked your chronic vertigo. Otherwise, your exam, EKG, chest xray, lab results, CT scan of your brain and neck with contrast did not show signs of an emergent condition at this time. Ciprofloxacin as directed. Florastor, probiotic, to help prevent antibiotic associated diarrhea. Continue meclizine as needed for vertigo. Drink plenty of fluids to ensure hydration. Return to the emergency department for worsening symptoms as described in the accompanying instructions.
[2018-02-05 17:49] LABS: ALBUMIN 3.5 gm/dl (3.4-5.0); ALT/SGPT 39 U/L (12-78); BLOOD UREA NITROGEN 18 mg/dl (7-18); CALCIUM 8.7 mg/dl (8.5-10.1); CARBON DIOXIDE 27 mmol/L (21-32); CREATININE 0.78 mg/dl (0.60-1.20); GLUCOSE 119 mg/dl (70-99); LIPASE 112 U/L (73-393); POTASSIUM 3.3 mmol/L (3.5-5.1); SODIUM 134 mmol/L (136-145)
[2018-02-05 17:56] LABS: ALKALINE PHOSPHATASE 95 U/L (45-117); AST/SGOT 27 U/L (15-37); TOTAL PROTEIN 7.5 gm/dl (6.4-8.2)
[2018-02-05] MEDS ORDERED: OPTIRAY 320 IV PRN (19:00)
--- NOTE | 2018-02-05 19:06 | DIAGNOSTIC IMAGING REPORT ---
CT HEAD WITHOUT CONTRAST (CT) CLINICAL HISTORY: Stroke COMPARISON STUDY: No previous studies for comparison. TECHNIQUE: Axial CT of the brain is performed from the vertex to the skull base. IV contrast was not administered for this examination. A dose lowering technique was utilized adhering to the principles of ALARA. CT DOSE: 1457.92 mGy.cm FINDINGS: No intra or extra-axial mass lesions are visualized. There is no CT evidence of acute cortical infarction. There is no evidence of midline shift. There is no acute hemorrhage. No calvarial fractures are visualized. There are minimal white matter hypodensities likely on a small vessel basis. There is a small hypodensity located medial to the insular cortex. This likely represents either an old lacunar infarct or prominent CSF space There is no evidence of pathologic ventricular dilatation. There is no evidence of acute sinusitis IMPRESSION: No acute intracranial findings Electronically signed by: Faustino Villa M.D. 02/05/2018 7:05 PM Dictated Date/Time: 02/05/2018 7:03 PM
--- NOTE | 2018-02-05 19:09 | DIAGNOSTIC IMAGING REPORT ---
CT HEAD ANGIO WITH CONTRAST CLINICAL HISTORY: Stroke TECHNIQUE: CT angiography of the head was performed in a dynamic helical fashion during intravenous administration of 116 cc of Optiray 320. A dose lowering technique was utilized adhering to the principles of ALARA. MIP imaging was performed CT DOSE: COMPARISON STUDY: Noncontrast head CT dated 02/05/2018 FINDINGS: There are no lesion suspicious for aneurysm. There are no major intracranial branch occlusions. The dural venous sinuses appear patent. There is a hypoplastic right A1 segment IMPRESSION: 1. Hypoplastic right A1 segment 2. No evidence of aneurysm 3. No evidence of dural venous sinus thrombosis Electronically signed by: Faustino Villa M.D. 02/05/2018 7:08 PM Dictated Date/Time: 02/05/2018 7:05 PM
--- NOTE | 2018-02-05 19:12 | DIAGNOSTIC IMAGING REPORT ---
CT NECK ANGIO WITH CONTRAST CLINICAL HISTORY: Stroke COMPARISON STUDY: No previous studies for comparison. TECHNIQUE: CT angiography was performed from the aortic arch to the skull base. MIP imaging was performed. The patient was scanned in a dynamic helical fashion during intravenous administration of 116 cc of Optiray 320. A dose lowering technique was utilized adhering to the principles of ALARA. CT DOSE: Technique: CT angiogram of the carotid and vertebral arteries was obtained using intravenous contrast and 3-D reconstruction. NASCET criteria was utilized. Findings: The right carotid revealed no evidence of aneurysm and no evidence of dissection. There is no evidence of hemodynamic significant stenosis. The left carotid revealed no evidence of hemodynamic significant stenosis. There is no evidence of aneurysm. There is no evidence of dissection. There is no evidence of hemodynamically significant vertebral stenosis. There is no evidence of vertebral dissection. IMPRESSION: No evidence of hemodynamically significant carotid or vertebral artery stenosis. No evidence of dissection. Electronically signed by: Faustino Villa M.D. 02/05/2018 7:11 PM Dictated Date/Time: 02/05/2018 7:08 PM
[2018-02-05] MEDS ORDERED: WARFARIN SOD 6 MG TAB PO STA (20:41)
[2018-02-05] MEDS ORDERED: CIPROFLOXACIN 500 MG TAB PO STA (20:41)
[2018-02-05] MEDS ORDERED: SACC250C3 PO (20:44)
[2018-02-05] MEDS ORDERED: CIPR-255 PO (20:44)
[2018-02-05 21:08] VITALS: BP 138/77; PULSE 68; O2SAT 93
== END 2018-02-05 21:10 | disposition home or self-care (01) ==
LOC: C.EDB 16:07 → C.EDC 21:10
DX: N39.0 Urinary tract infection, site not specified (principal); R42 Dizziness and giddiness; R11.0 Nausea; E11.9 Type 2 diabetes mellitus without complications; I10 Essential (primary) hypertension; Z79.01 Long term (current) use of anticoagulants; Z79.899 Other long term (current) drug therapy; Z87.891 Personal history of nicotine dependence

== ENCOUNTER → 2018-02-16 | Outpatient (CLI) | payer OTHER ==
[~2018-02-16] MED LIST changes: +CHOL1TAB42 PO; +CIPR-255 PO; +DIPH-437 PO; -ERGO500037 PO; -KETO2SHA5 TOP; +SACC250C3 PO
[2018-02-16 17:27] LABS: INR 2.1 (0.9-1.1)
[2018-02-16 17:34] LABS: BLOOD UREA NITROGEN 15 mg/dl (7-18); CALCIUM 8.8 mg/dl (8.5-10.1); CARBON DIOXIDE 28 mmol/L (21-32); CREATININE 0.85 mg/dl (0.60-1.20); GLUCOSE 114 mg/dl (70-99); POTASSIUM 3.6 mmol/L (3.5-5.1); SODIUM 138 mmol/L (136-145)
== END | disposition home or self-care (01) ==
LOC: C.LABPBG 15:04
PROVIDERS: ATTEND Family Medicine
DX: Z86.711 Personal history of pulmonary embolism (principal); R06.02 Shortness of breath